=== PATIENT | male | born 1990 | race Caucasian/White ===

== ENCOUNTER → 2020-04-21 | Outpatient (CLI) | payer BC ==
[2020-04-23 12:28] LABS: CORONAVIRUS (COVID19) CSH-NRL Negative (Negative)
== END | disposition home or self-care (01) ==
LOC: LAB 19:50 → LAB SHORT 19:50
PROVIDERS: Physician Assistant Medical
DX: Z20.828 Contact with and (suspected) exposure to other viral communicable diseases (principal)
CPT/HCPCS: U0003

== ENCOUNTER 2024-08-10 17:23 | Emergency (ER) | payer OTHER ==
[~2024-08-10] VITALS: Ht 177.8 cm; Wt 93.0 kg
[2024-08-10 18:09] VITALS: BP 173/151
[2024-08-10] MEDS ORDERED: LORazepam 2 MG/ML 1ML Injection IV ONE ×2 (18:25→23:25)
== END 2024-08-11 00:08 | disposition home or self-care (01) ==
LOC: ER 17:23
DX: S10.83XA Contusion of other specified part of neck, initial encounter (principal); V86.56XA Driver of dirt bike or motor/cross bike injured in nontraffic accident, initial encounter; W22.09XA Striking against other stationary object, initial encounter; Z88.5 Allergy status to narcotic agent; Z88.8 Allergy status to other drugs, medicaments and biological substances; Z87.891 Personal history of nicotine dependence
CPT/HCPCS: 70450; 70498; 96374; 99283-25; J2060; Q9967